=== PATIENT | male | born 1995 | race Caucasian/White ===

== ENCOUNTER 2018-10-22 11:31 | Emergency (ER) | payer BC ==
[~2018-10-22 11:31] MED LIST: CEPH-13 PO; CITA-145 PO; NAPR-1043 PO; ONDA4TAB9 PO; OXYC-865 PO; PER PO; QUET150T3 PO
--- NOTE | 2018-10-22 11:44 | ER Report ---
History and Physical Time Seen By MD: 11:44 Hx. of Stated Complaint: PATIENT REPORTS THAT HE IS HAVING SUICIDAL THOUGHTS. HE ALSO REPORTS A HISTORY OF SEIZURES HPI/ROS CHIEF COMPLAINT: Suicidal ideation HISTORY OF PRESENT ILLNESS: 23-year-old male patient presents to emergency room with complaint of suicidal ideation. Patient states that he has a long-standing history of depression with suicidality. He states he has attempted suicide 2 in the past. Once was by hanging when he was in juvenile jail and the second time he tried to overdose on a month's worth of blood pressure medication. Patient states that today he was going to get into his truck and drive [place] the mountains and drive off a [place]. He states when he got into his truck he stopped by [facility]. While he was there he was directed to come here. Patient states that he believes that he does need to be admitted to behavioral health unit. Patient denies any pertinent medical history. Patient states he does not currently take any medications normally. He does smoke marijuana normally and drinks daily. REVIEW OF SYSTEMS: Respiratory: No cough, no dyspnea. Cardiovascular: No chest pain, no palpitations. Gastrointestinal: No vomiting, no abdominal pain. Musculoskeletal: No back pain. Allergies: Coded Allergies: No Known Drug Allergies (Unverified , 06/21/16) Home Meds Active Scripts Oxycodone/Acetaminophen (OXYCODONE/ACETAMINOPHEN 5MG/325 MG) 5 Mg/325 Mg Tab, 1- 2 TAB PO Q6H, #10 TAB Prov:DWIGHT TERESA NP 06/21/16 Ondansetron 4 Mg Odt (ONDANSETRON 4 MG ODT) 4 Mg Tab.rapdis, 4 MG PO Q6H, #10 TAB One tablet every 6 hours as needed for nausea and vomiting. Prov:DWIGHT TERESA NP 06/21/16 Reported Medications Quetiapine Fumarate (SEROQUEL XR) 150 Mg Tab.er.24h, 75 MG PO HS 06/21/16 Citalopram Hydrobromide (CITALOPRAM HBR) 20 Mg Tablet, 20 MG PO QDAY, #5 TAB 06/21/16 Past Medical/Surgical History Patient has a past medical history of hypertension, wrist fracture, marijuana abuse, alcohol use, anxiety, depression, suicide attempt. Patient denies any surgical history. Reviewed Nurses Notes: Yes Hx Smoking: Yes (1/2 PPD) Smoking Status: Current: Every Day Smoker Exposure to Second Hand Smoke?: Yes Hx Substance Use Disorder: Yes ( WEED ) Hx Alcohol Use: Yes (OCC) Constitutional Vital Sign - Last 24 Hours 10/22/18 10/22/18 10/22/18 10/22/18 11:31 11:37 11:37 12:00 Temp 98.7 Pulse ??? 77 Resp 20 B/P (MAP) 147/82 147/82 (103) 125/75 (92) Pulse Ox 92 O2 Delivery Room Air 10/22/18 10/22/18 10/22/18 10/22/18 12:01 12:30 12:31 13:19 Pulse 68 82 B/P (MAP) 148/89 (108) 133/73 (93) Pulse Ox 94 94 Physical Exam General Appearance: The patient is alert, has no immediate need for airway protection and no current signs of toxicity. ENT: Tympanic membranes are pearly-victoria, auditory canals are patent, mucous membranes are moist. Respiratory: Chest is non tender, lungs are clear to auscultation. Cardiac: regular rate and rhythm Gastrointestinal: Abdomen is soft and non tender, no masses, bowel sounds normal. Musculoskeletal: Neck: Neck is supple and non tender. Extremities have full range of motion and are non tender. Skin: No rashes or lesions. Psych: Patient is tearful, he does have a difficult time maintaining eye contact, rate of speech is appropriate. DIFFERENTIAL DIAGNOSIS: After history and physical exam differential diagnosis was considered for depression, suicidal ideation. Medical Decision Making Data Points Result Diagram: 10/22/18 1144 10/22/18 1157 Laboratory Hematology Test 10/22/18 11:41 10/22/18 11:44 10/22/18 11:57 10/22/18 11:58 Urine Color Yellow Urine Clarity Slightly-cloudy Urine pH 7.0 pH (4.8-9.5) Urine Specific [place] 1.013 Urine Protein Negative mg/dL (NEGATIVE) Urine Glucose (UA) Negative mg/dL (NEGATIVE) Urine Ketones Negative mg/dL (NEGATIVE) Urine Blood Negative (NEGATIVE) Urine Nitrite Negative (NEGATIVE) Urine Bilirubin Negative (NEGATIVE) Urine Urobilinogen Negative mg/dL (0.2-1.9) Urine Leukocyte Esterase Negative (NEGATIVE) Urine RBC <1 /HPF (0-2/HPF) Urine WBC None /HPF (0-5/HPF) Urine Squamous Epithelial Cells None /LPF (</=FEW) Urine Transitional Epithelial Cells Few /LPF (NONE-FEW) Urine Bacteria Negative /HPF (NONE-FEW) Urine Mucus None /HPF (NONE-FEW) Urine Opiates Screen Negative Urine Barbiturates Screen Negative Ur Tricyclic Antidepressants Screen Negative Urine Phencyclidine Screen Negative Urine Amphetamines Screen Negative Urine Benzodiazepines Screen Negative Urine Cocaine Screen Negative Urine Cannabinoids Screen Positive Red Blood Count 5.45 M/uL (4.00-5.60) Mean Corpuscular Volume 89.4 fL (80.0-96.0) Mean Corpuscular Hemoglobin 31.1 pg (26.0-33.0) Mean Corpuscular Hemoglobin Concent 34.7 g/dL (32.0-36.0) Red Cell Distribution Width 12.8 % (11.5-14.5) Mean Platelet Volume 8.2 fL (7.2-11.1) Neutrophils (%) (Auto) 69.8 % (39.4-72.5) Lymphocytes (%) (Auto) 18.5 % (17.6-49.6) Monocytes (%) (Auto) 8.0 % (4.1-12.4) Eosinophils (%) (Auto) 3.3 % (0.4-6.7) Basophils (%) (Auto) 0.4 % (0.3-1.4) Nucleated RBC Relative Count (auto) 0.1 /100WBC Neutrophils # (Auto) 4.3 K/uL (2.0-7.4) Lymphocytes # (Auto) 1.2 K/uL (1.3-3.6) Monocytes # (Auto) 0.5 K/uL (0.3-1.0) Eosinophils # (Auto) 0.2 K/uL (0.0-0.5) Basophils # (Auto) 0.0 K/uL (0.0-0.1) Nucleated RBC Absolute Count (auto) 0.01 K/uL Sodium Level 138 mmol/L (137-145) Potassium Level 4.1 mmol/L (3.5-5.0) Chloride Level 104 mmol/L (98-107) Carbon Dioxide Level 22 mmol/L (22-30) Blood Urea Nitrogen 13 mg/dl (9-21) Creatinine 0.80 mg/dl (0.66-1.25) Glomerular Filtration Rate Calc > 60.0 Random Glucose 203 mg/dl (75-110) Calcium Level 9.3 mg/dl (8.4-10.2) Magnesium Level 2.0 mg/dl (1.7-2.2) Total Bilirubin 0.4 mg/dl (0.2-1.3) Aspartate Amino Transf (AST/SGOT) 39 U/L (0-35) Alanine Aminotransferase (ALT/SGPT) 41 U/L (0-56) Alkaline Phosphatase 76 U/L (0-126) Total Protein 7.1 g/dl (6.3-8.2) Albumin 4.3 g/dl (3.5-5.0) Thyroid Stimulating Hormone (TSH) 1.15 uIU/ml (0.46-4.68) Salicylates Level < 10 mg/L Salicylate Last Dose Date unk Acetaminophen Level < 10 ug/ml Serum Alcohol < 10 mg/dl Hemoglobin A1c 5.4 % (4.6-6.0) Chemistry Test 10/22/18 11:41 10/22/18 11:44 10/22/18 11:57 10/22/18 11:58 Urine Color Yellow Urine Clarity Slightly-cloudy Urine pH 7.0 pH (4.8-9.5) Urine Specific [place] 1.013 Urine Protein Negative mg/dL (NEGATIVE) Urine Glucose (UA) Negative mg/dL (NEGATIVE) Urine Ketones Negative mg/dL (NEGATIVE) Urine Blood Negative (NEGATIVE) Urine Nitrite Negative (NEGATIVE) Urine Bilirubin Negative (NEGATIVE) Urine Urobilinogen Negative mg/dL (0.2-1.9) Urine Leukocyte Esterase Negative (NEGATIVE) Urine RBC <1 /HPF (0-2/HPF) Urine WBC None /HPF (0-5/HPF) Urine Squamous Epithelial Cells None /LPF (</=FEW) Urine Transitional Epithelial Cells Few /LPF (NONE-FEW) Urine Bacteria Negative /HPF (NONE-FEW) Urine Mucus None /HPF (NONE-FEW) Urine Opiates Screen Negative Urine Barbiturates Screen Negative Ur Tricyclic Antidepressants Screen Negative Urine Phencyclidine Screen Negative Urine Amphetamines Screen Negative Urine Benzodiazepines Screen Negative Urine Cocaine Screen Negative Urine Cannabinoids Screen Positive White Blood Count 6.2 k/uL (4.5-11.0) Red Blood Count 5.45 M/uL (4.00-5.60) Hemoglobin 16.9 g/dL (14.0-18.0) Hematocrit 48.7 % (42.0-52.0) Mean Corpuscular Volume 89.4 fL (80.0-96.0) Mean Corpuscular Hemoglobin 31.1 pg (26.0-33.0) Mean Corpuscular Hemoglobin Concent 34.7 g/dL (32.0-36.0) Red Cell Distribution Width 12.8 % (11.5-14.5) Platelet Count 184 K/uL (150-450) Mean Platelet Volume 8.2 fL (7.2-11.1) Neutrophils (%) (Auto) 69.8 % (39.4-72.5) Lymphocytes (%) (Auto) 18.5 % (17.6-49.6) Monocytes (%) (Auto) 8.0 % (4.1-12.4) Eosinophils (%) (Auto) 3.3 % (0.4-6.7) Basophils (%) (Auto) 0.4 % (0.3-1.4) Nucleated RBC Relative Count (auto) 0.1 /100WBC Neutrophils # (Auto) 4.3 K/uL (2.0-7.4) Lymphocytes # (Auto) 1.2 K/uL (1.3-3.6) Monocytes # (Auto) 0.5 K/uL (0.3-1.0) Eosinophils # (Auto) 0.2 K/uL (0.0-0.5) Basophils # (Auto) 0.0 K/uL (0.0-0.1) Nucleated RBC Absolute Count (auto) 0.01 K/uL Glomerular Filtration Rate Calc > 60.0 Calcium Level 9.3 mg/dl (8.4-10.2) Magnesium Level 2.0 mg/dl (1.7-2.2) Total Bilirubin 0.4 mg/dl (0.2-1.3) Aspartate Amino Transf (AST/SGOT) 39 U/L (0-35) Alanine Aminotransferase (ALT/SGPT) 41 U/L (0-56) Alkaline Phosphatase 76 U/L (0-126) Total Protein 7.1 g/dl (6.3-8.2) Albumin 4.3 g/dl (3.5-5.0) Thyroid Stimulating Hormone (TSH) 1.15 uIU/ml (0.46-4.68) Salicylates Level < 10 mg/L Salicylate Last Dose Date unk Acetaminophen Level < 10 ug/ml Serum Alcohol < 10 mg/dl Hemoglobin A1c 5.4 % (4.6-6.0) Toxicology Test 10/22/18 11:41 10/22/18 11:57 Urine Opiates Screen Negative Urine Barbiturates Screen Negative Ur Tricyclic Antidepressants Screen Negative Urine Phencyclidine Screen Negative Urine Amphetamines Screen Negative Urine Benzodiazepines Screen Negative Urine Cocaine Screen Negative Urine Cannabinoids Screen Positive Salicylates Level < 10 mg/L Salicylate Last Dose Date unk Acetaminophen Level < 10 ug/ml Serum Alcohol < 10 mg/dl Urinalysis Test 10/22/18 11:41 Urine Color Yellow Urine Clarity Slightly-cloudy Urine pH 7.0 pH (4.8-9.5) Urine Specific [place] 1.013 Urine Protein Negative mg/dL (NEGATIVE) Urine Glucose (UA) Negative mg/dL (NEGATIVE) Urine Ketones Negative mg/dL (NEGATIVE) Urine Blood Negative (NEGATIVE) Urine Nitrite Negative (NEGATIVE) Urine Bilirubin Negative (NEGATIVE) Urine Urobilinogen Negative mg/dL (0.2-1.9) Urine Leukocyte Esterase Negative (NEGATIVE) Urine RBC <1 /HPF (0-2/HPF) Urine WBC None /HPF (0-5/HPF) Urine Squamous Epithelial Cells None /LPF (</=FEW) Urine Transitional Epithelial Cells Few /LPF (NONE-FEW) Urine Bacteria Negative /HPF (NONE-FEW) Urine Mucus None /HPF (NONE-FEW) ED Course/Re-evaluation ED Course Patient was admitted to exam room, history and physical were obtained. Differential diagnoses were considered. On examination lungs are clear, heart is regular, abdomen soft nontender. And is tearful at times during the interview. He states he does not want to be admitted, however he feels like he needs to be. Lab work for a behavioral health admission were done. Results were unremarkable except patient did have an elevated blood sugar of 203. There is no sugar in his urine. I discussed the findings with Dr. Paris who agreed to accept the patient for admission. He requested that I had a hemoglobin A1c onto the lab work. That was done. I discussed this with the patient who verbalized understanding and agreement with plan. Decision to Disposition Date: Oct 22, 2018 Decision to Disposition Time: 12:55 Depart Departure Latest Vital Signs Vital Signs Date Time Temp Pulse Resp B/P (MAP) Pulse Ox O2 Delivery O2 Flow Rate FiO2 10/22/18 13:19 133/73 (93) 10/22/18 12:31 82 94 10/22/18 11:37 98.7 20 Room Air Impression: Primary Impression: Suicidal ideation Additional Impression: Depression Condition: Condition Unchanged Disposition: XFER TO [facility] Problem Qualifiers Additional Impression: Depression Depression Type: major depressive disorder Major depression recurrence: recurrent Active/Remission status: currently active Major depression episode severity: moderate Qualified Codes: F33.1 - Major depressive disorder, recurrent, moderate PABLO FONSECA Oct 22, 2018 11:44
[2018-10-22 12:01] LABS: PLATELET COUNT, AUTOMATED 184 K/uL (150-450)
[2018-10-22 13:19] VITALS: BP 133/73
[2018-10-22] MEDS ORDERED: fish oil PO (14:37)
[2018-10-22] MEDS ORDERED: MULT1TAB64 PO (14:37)
[2018-10-23] MEDS ORDERED: OMEG1CAP35 PO (11:32)
[2018-10-23] MEDS ORDERED: NICO-219 BC (11:33)
== END 2018-10-22 13:30 ==
LOC: ER 11:46
DX: R45.851 Suicidal ideations (principal); F33.1 Major depressive disorder, recurrent, moderate
CPT/HCPCS: 80305; 80320; 80329; 81001; 82040; 82247; 82310; 82374; 82435; 82565; 82947; 83036; 83735; 84075; 84132; 84155; 84295; 84443; 84450; 84460; 84520; 85025; 99284

== ENCOUNTER 2018-10-22 13:21 | Inpatient (IN) | payer BC ==
[~2018-10-22] VITALS: Ht 188 cm; Wt 68.0 kg
[2018-10-22] MEDS ORDERED: MAG HYD/AL HYD/SIMETH 30ML UDC PO PRN (14:30)
[2018-10-22 14:34] VITALS: BP 138/87
[2018-10-22] MEDS ORDERED: DIAZEPAM 10 MG TAB PO ONE ×2 (14:35→21:00)
[2018-10-22] MEDS ORDERED: MULT1TAB64 PO (14:37)
[2018-10-22] MEDS ORDERED: fish oil PO (14:37)
[2018-10-22] MEDS: NICOTINE POLACRILEX 2 MG GUM PO PRN ×2 (17:30→20:12)
[2018-10-22 22:10] VITALS: BP 143/89
[2018-10-23 06:24] VITALS: BP 124/71
[2018-10-23] MEDS ORDERED: DIAZEPAM 10 MG TAB PO ONE (06:30)
--- NOTE | 2018-10-23 07:50 | RADIOLOGY IMAGING REPORT ---
FACILITY: [facility] PATIENT NAME: Ángel Meek : 1995 MR: [id number] V: [id number] EXAM DATE: ORDERING PHYSICIAN: YAYA MILIAN TECHNOLOGIST: Location: [facility] Patient: Ángel Meek : 1995 Visit/Account:[id number] Date of Sevice: 10/23/2018 Exam type: ORBITS FOREIGN BODY 1 VIEW History: Pre-MRI Comparison: None. Findings: Linear radiopaque foreign body projecting over the oral cavity is noted. The technologist interrogate d patient who indicated he had a tongue ring which could be removed. There are no radiopaque foreign bodies project over the orbits. Paranasal sinuses are well aerated. IMPRESSION: 1. No radiopaque foreign bodies project over the orbits. 2. Metallic foreign body projecting over the oropharynx is consistent with a tongue piercing. The pie rcing should be removed prior to MRI. Report Dictated By: Vijay Bailey MD at 10/23/2018 7:33 AM Report E-Signed By: Vijay Bailey MD at 10/23/2018 7:47 AM WSN:[id number]
[2018-10-23] MEDS ORDERED: GADOBENATE 529MG/1ML 15ML VIAL IVP ONE (08:00)
[2018-10-23] MEDS ORDERED: MULTIVITAMINS TAB PO SCH (09:00)
--- NOTE | 2018-10-23 09:36 | RADIOLOGY IMAGING REPORT ---
FACILITY: [facility] [place] PATIENT NAME: Ángel Meek : 1995 MR: [id number] V: [id number] EXAM DATE: ORDERING PHYSICIAN: YAYA MILIAN TECHNOLOGIST: Location: [facility] [place] Patient: Ángel Meek : 1995 Visit/Account:[id number] Date of Sevice: 10/22/2018 BRAIN MR W W/O CONTRAST New onset seizures ADDITIONAL PERTINENT HISTORY: None. COMPARISON STUDIES: None. TECHNIQUE: Multi-planar, multi-sequence brain MRI was performed with and without IV contrast adminis tration. Contrast: 15 mL MultiHance FINDINGS: Ventricles / sulci / fissures: Negative. Masses / hemorrhage / midline shift: Negative. White matter: Negative. [place]-white differentiation: Normal. Extra-axial fluid collections: Negative. Incidentally noted is a partially empty sella Intracranial vasculature and dural sinuses: Negative. Skull base / calvarium: Negative. Visualized mastoid air cells / paranasal sinuses: Well aerated. Orbits: Negative. Upper neck:Negative. IMPRESSION: Incidental note of a partially empty sella otherwise unremarkable MR the brain with and without contr ast Report Dictated By: Missy Miller MD at 10/23/2018 9:29 AM Report E-Signed By: Missy Miller MD at 10/23/2018 9:32 AM WSN:[id number]
[2018-10-23] MEDS ORDERED: OMEG1CAP35 PO (11:32)
[2018-10-23] MEDS ORDERED: NICO-219 BC (11:33)
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
== END 2018-10-23 16:00 | disposition home or self-care (01) | DRG 897 ==
LOC: BHS 13:21
PROVIDERS: ADMIT Psychiatry & Neurology Psychiatry; ATTEND Psychiatry & Neurology Psychiatry
DX: F12.288 Cannabis dependence with other cannabis-induced disorder (principal); R45.851 Suicidal ideations; Z68.1 Body mass index [BMI] 19.9 or less, adult; R63.4 Abnormal weight loss; G40.909 Epilepsy, unspecified, not intractable, without status epilepticus; Z63.0 Problems in relationship with spouse or partner
CPT/HCPCS: 70030; 70553; 82274; 87177; A9577